=== PATIENT | female | born 1990 ===

== ENCOUNTER → 2024-07-03 11:14 | Outpatient (BNVA) | payer MEDICAID, SELFPAY | PROVIDERS: PCP Obstetrics & Gynecology; Visit Provider Nurse Practitioner Women's Health | DX: Z34.90 Encounter for supervision of normal pregnancy, unspecified, unspecified trimester (principal); N91.2 Amenorrhea, unspecified | CPT/HCPCS: 80307; 81000; 81025; 84439; 84443; 84481; 85025; 86592; 86762; 86803; 86850; 86900; 87086; 87340; 87806 ==

== ENCOUNTER → 2024-07-23 07:56 | Outpatient (BNVA) | payer MEDICAID, SELFPAY | PROVIDERS: PCP Obstetrics & Gynecology; Visit Provider Nurse Practitioner Women's Health | DX: Z34.90 Encounter for supervision of normal pregnancy, unspecified, unspecified trimester (principal) | CPT/HCPCS: 81000; 87491; 87591; 87624 ==

== ENCOUNTER → 2024-08-28 09:15 | Outpatient (BNVA) | payer OTHER, MEDICAID, SELFPAY | PROVIDERS: PCP Obstetrics & Gynecology; Visit Provider Obstetrics & Gynecology | DX: O26.892 Other specified pregnancy related conditions, second trimester (principal); Z3A.20 20 weeks gestation of pregnancy | CPT/HCPCS: 76805 ==

== ENCOUNTER → 2024-10-23 13:39 | Outpatient (BNVA) | payer OTHER, MEDICAID, SELFPAY | PROVIDERS: Visit Provider Obstetrics & Gynecology | DX: Z34.82 Encounter for supervision of other normal pregnancy, second trimester (principal) | CPT/HCPCS: 82950; 84315 ==

== ENCOUNTER → 2024-11-19 09:10 | Outpatient (BNVA) | payer MEDICAID, SELFPAY | PROVIDERS: Visit Provider Nurse Practitioner Women's Health | DX: Z34.82 Encounter for supervision of other normal pregnancy, second trimester (principal) | CPT/HCPCS: 81000 ==

== ENCOUNTER → 2024-12-03 12:21 | Outpatient (BNVA) | payer MEDICAID, SELFPAY | PROVIDERS: Visit Provider Nurse Practitioner Women's Health | DX: O26.893 Other specified pregnancy related conditions, third trimester (principal); Z3A.34 34 weeks gestation of pregnancy | CPT/HCPCS: 76816; 84315; 85025; 87086 ==

== ENCOUNTER → 2024-12-17 15:27 | Outpatient (BNVA) | payer MEDICAID, SELFPAY | PROVIDERS: Visit Provider Obstetrics & Gynecology | DX: Z34.82 Encounter for supervision of other normal pregnancy, second trimester (principal) | CPT/HCPCS: 84315; 87081 ==

== ENCOUNTER → 2025-01-01 10:04 | Outpatient (BNVA) | payer MEDICAID, SELFPAY | PROVIDERS: Visit Provider Obstetrics & Gynecology | DX: Z34.83 Encounter for supervision of other normal pregnancy, third trimester (principal) | CPT/HCPCS: 84315 ==

== ENCOUNTER → 2025-01-06 08:03 | Outpatient (BNVA) | payer MEDICAID, SELFPAY | PROVIDERS: Visit Provider Obstetrics & Gynecology | DX: Z34.90 Encounter for supervision of normal pregnancy, unspecified, unspecified trimester (principal) | CPT/HCPCS: 84315 ==

== ENCOUNTER 2025-01-09 20:00 | Inpatient (IN) | payer OTHER, MEDICAID, SELFPAY ==
[2025-01-09] VITALS (13 sets, daily range): BP systolic 103–144; BP diastolic 54–91; PULSE 63–93; RESP 18; BMI 27.4
[2025-01-09 19:33] LABS: Basophils % 0.2 %; Eosinophils # 0.1 10^3/uL (0.0-0.8); Eosinophils % 0.5 %; Hematocrit 36.1 % (36-47); Lymphocytes # 1.5 10^3/uL (0.8-4.8); Lymphocytes % 11.8 %; Mean Corpuscular HGB Conc 33.8 g/dL (30-55); Mean Corpuscular Hemoglobin 30.2 pg (27-33); Mean Corpuscular Volume 89.4 fl (85-98); Mean Platelet Volume 10.1 fL (7.4-10.4); Monocytes # 0.6 10^3/uL (0.2-0.9); Monocytes % 4.6 %; Neutrophils # 10.68 10^3/uL (1.8-7.7); Neutrophils % 82.4 %; Nucleated Red Blood Cells % 0 %; Platelet Count 338 10^3/cmm (157-399); Red Blood Count 4.04 10^6/uL (3.85-5.65); Red Cell Distribution Width 13.2 % (12.1-15.1); White Blood Count 12.97 10^3/uL (3.29-11.43)
[2025-01-09] MEDS: dextrose 5%-lactated ringers 1,000 ML 125 ML IV (20:00)
[2025-01-09] MEDS: lactated ringers 1,000 ML 999 ML IV (20:09)
--- NOTE | 2025-01-09 20:20 | PM.DELIVERY ---
Delivery Note: Date of delivery: January 09, 2025 Pre-delivery diagnoses: 40 weeks gestation active labor Post-delivery diagnoses: 40 weeks gestation active labor vaginal delivery Procedure: vaginal delivery Op report anesthesia: None Delivering Physician: Bharat Hanson MD Estimated blood loss (mL): 300 Findings: , vigorous infant cord gases and blood obtained normal placenta and cord no episiotomy / lacerations EBL: 300 cc no complications Pre-Delivery Course: normal labor course fetus reassuring throughout Delivery: vaginal Post-Delivery Status: good History History History 3 Term 2 0 Miscarriages/Ectopic 0 Living Children 2 A&P Assessment and plan (1) Vaginal delivery: PDMP PDMP Reviewed: Not Reviewed Coding Level of Care Code Acute Code for Chg Fwd Diagnoses Vaginal delivery O80 Time Spent (min) 60
[2025-01-09] MEDS: oxytocin 30 UNIT/500 ML BAG 600 UNIT IV (20:23)
--- NOTE | 2025-01-09 21:50 | P.HP_ITS ---
Providers/Chief Complaint 2 Admitting Physician: Bharat Hanson MD Primary DELIVERY DRIVER ASSISTANT: Bharat Hanson MD Chief Complaint: CTX HPI DELIVERY DRIVER ASSISTANT History of Present Illness patient admitted on January 09, 2025 at 1915 Adri Weems is a 34 year old female 34 y.o. EDC January 11, 2025 At 39 w 5 d No complications Presented to L&D c/o painful uterine contractions No bleeding / fluid leakage + active movements h/o x two, uncomplicated Present Details : 3 Para: 2 Labs Rubella: Immune RPR: Negative GBS: Negative Medications/Allergies Home Medications ?Medication ?Instructions ?Recorded ?Confirmed ?Last Taken ?Type No Known Home Medications 01/10/2512/28 Unknown History Allergies Allergy/AdvReac Type Severity Reaction Status Date / Time No Known Allergies Allergy Verified 01/09/25 21:10 PFSH DELIVERY DRIVER ASSISTANT 2 PFSH: Medical History (Updated 01/11/25 @ 00:00 by ANNALISE Lyons) Vaginal delivery Family History Grandmother Diabetes Hypertension Father Stroke Denies family history of Colon cancer Ovarian cancer Prostate cancer Heart disease Breast cancer Uterine cancer Thyroid disease Social History Smoking and tobacco/nicotine status: never used tobacco/nicotine History History History 2 3 Term 2 0 Miscarriages/Ectopic 0 Living Children 2 Care TRINI Calculator 2 Estimated Delivery Date Method Current WG Current Estimate 01/11/25 LMP (Certain) 44w 1d Specific Issues/Plans * SUPERVISION OF * FUNDAL HEIGHT HIGH FOR DATES: Measuring 3 cm ahead at 34 weeks gestation, U/s showed weight in 47th percentile, SHAUN 16 cm Vitals/I&O/Wt Last Vital Signs Temp 97.9 F 01/10/25 21:35 Pulse 96 01/10/25 21:35 Resp 16 01/10/25 21:35 BP 124/91 01/10/25 21:35 Pulse Ox 97 01/10/25 21:35 O2 Del Method Room Air 01/10/25 21:34 Physical Exam 2 Narrative: Weight 155 lbs; 5?3? VS normal General awake, alert, appropriate Lungs: clear Cor: RRR FH 37 cm, cephalic Cervix: 5-6 cm / 90 / -2 / cephalic Ext: no edema External monitor: regular UCs heart tracing good variability, + accelerations Data 01/10/25 12:00 Results Labs OB ([facility]): 2 Obstetrics US 12/03/24 Blood Type B Positive 01/09/25 Antibody Screen Negative 01/09/25 Hct 35.6 % (36-47) L 01/10/25 Hgb 11.90 g/dL (11.27-16.99) 01/10/25 Rho(D) Type Rh positive 01/09/25 Plt Count 280 10^3/cmm (157-399) 01/10/25 Hep Bs Antigen Non-reactive (Nonreactive) 07/03/24 Hepatitis C Antibody Non-reactive (Nonreactive) 07/03/24 Rubella IgG Antibody 168.5 IU/mL (0.0-10.0) H 07/03/24 RPR Nonreactive (Nonreactive) 07/03/24 HIV 1&2 Ab & HIV 1 Ag Non-reactive (Non-Reactiv) 07/03/24 TSH 1.57 uIU/mL (0.27-4.20) 07/03/24 Free T4 0.91 ng/dL (0.82-1.77) 07/03/24 C.trachomatis RNA (TMA) Not detected (NOT DETECTED) N.gonorrhoeae RNA (TMA) Not detected (NOT DETECTED) T. vaginalis Amp RNA Not detected (NOT DETECTED) 07/23/24 Chlamydia/GC Comment See note 07/23/24 Glucose 1 Hr 50 gm 103 mg/dL (85-140) 10/23/24 HCG, Qual Positive (Negative) H 07/03/24 Urine Opiates Screen Negative ng/mL (Negative) 01/09/25 Ur Barbiturates Screen Negative ng/mL (Negative) 01/09/25 Ur Phencyclidine Scrn Negative ng/mL (Negative) 01/09/25 Ur Amphetamines Screen Negative ng/mL (Negative) 01/09/25 U Benzodiazepines Scrn Negative ng/mL (Negative) 01/09/25 Urine Cocaine Screen Negative ng/mL (Negative) 01/09/25 U Marijuana (THC) Screen Negative ng/mL (Negative) 01/09/25 Micro Urine Specimen 12/03/24 Pap Smear Interpret See note 07/23/24 A&P Assessment and plan (1) Supervision of normal : 39 w 5 d Active labor Admit Labor management h/o x two Rh + GBS negative Qualifiers: Normal : other normal Trimester: second trimester Qualified Code(s): Z34.82 - Encounter for supervision of other normal , second trimester PDMP PDMP Reviewed: Not Reviewed Attestations 2 Medical Necessity Statement*: patient at 39 w 5 d, with active labor Coding Level of Care Code Acute Code for Chg Fwd Diagnoses Encounter for supervision of other normal in second trimester Z34.82 Normal : other normal Trimester: second trimester Time Spent (min) 60
[2025-01-09] MEDS: benzocaine-menthol 78 gm Canister 1 SPRAY TOPICAL (23:40)
[2025-01-10] VITALS (8 sets, daily range): BP systolic 100–124; BP diastolic 58–91; PULSE 71–96; RESP 16; TEMP 36.6–36.8; O2SAT 97
[2025-01-10 00:51] LABS: Amphetamines Screen Urine Negative (Negative); Barbiturates Screen Urine Negative (Negative); Benzodiazepines Screen Urine Negative (Negative); Cocaine Screen Urine Negative (Negative); Opiate Screen Urine Negative (Negative); PCP Screen Urine Negative (Negative); THC Screen Urine Negative (Negative)
--- NOTE | 2025-01-10 09:35 | PC.NURSE ---
[facility] at bedside
[2025-01-10 12:19] LABS: Hematocrit 35.6 % (36-47); Mean Corpuscular HGB Conc 33.4 g/dL (30-55); Mean Corpuscular Hemoglobin 30.9 pg (27-33); Mean Corpuscular Volume 92.5 fl (85-98); Mean Platelet Volume 10.2 fL (7.4-10.4); Platelet Count 280 10^3/cmm (157-399); Red Blood Count 3.85 10^6/uL (3.85-5.65); Red Cell Distribution Width 13.3 % (12.1-15.1); White Blood Count 12.85 10^3/uL (3.29-11.43)
--- NOTE | 2025-01-10 17:20 | P.DS_ITS ---
Discharge Providers BOTTLE LABEL INSPECTOR Date of Admission: 01/09/25 20:00 Date of Discharge: 01/10/25 Attending Provider at Admission: Bharat Hanson MD Attending Provider at Discharge: Bharat Hanson MD Consults: none Primary BOTTLE LABEL INSPECTOR: Bharat Hanson MD Diagnoses at Discharge Discharge Diagnosis (1) Supervision of normal : Details from hospital stay: 34 y.o. at 39 w 5 d no complications presented with active labor cervix was 5-6 cm patient progressed to complete dilatation fetus was reassuring throughout delivered vaginally without any lacerations patient did well and was discharged to home on the first day Status: Acute Qualifiers: Normal : other normal Trimester: second trimester Qualified Code(s): Z34.82 - Encounter for supervision of other normal , second trimester Reason for Visit Reason for Visit: CTX Brief History: 34 y.o. at 39 w 5 d no complications presented with active labor cervix was 5-6 cm Hospital Course Hospital Course 34 y.o. at 39 w 5 d no complications presented with active labor cervix was 5-6 cm patient progressed to complete dilatation fetus was reassuring throughout delivered vaginally without any lacerations patient did well and was discharged to home on the first day Information Peripartum Data: Delivery Method: Vaginal Laceration description: None Episiotomy description: None complications: none Physical Exam Narrative: General: comfortable, awake, alert VS afebrile, normal Lungs: clear Cor: RRR Abd: soft, nontender. fundus firm Ext: no edema History History History 3 Term 2 0 Miscarriages/Ectopic 0 Living Children 2 Discharge Data Studies Completed and Pending Laboratory Results WBC 12.85 10^3/uL (3.29-11.43) H 01/10/25 12:00 RBC 3.85 10^6/uL (3.85-5.65) 01/10/25 12:00 Hgb 11.90 g/dL (11.27-16.99) 01/10/25 12:00 Hct 35.6 % (36-47) L 01/10/25 12:00 MCV 92.5 fl (85-98) 01/10/25 12:00 MCH 30.9 pg (27-33) 01/10/25 12:00 MCHC 33.4 g/dL (30-55) 01/10/25 12:00 RDW 13.3 % (12.1-15.1) 01/10/25 12:00 Plt Count 280 10^3/cmm (157-399) 01/10/25 12:00 MPV 10.2 fL (7.4-10.4) 01/10/25 12:00 Neut % (Auto) 82.4 % 01/09/25 19:19 Lymph % (Auto) 11.8 % 01/09/25 19:19 [place] % (Auto) 4.6 % 01/09/25 19:19 Eos % (Auto) 0.5 % 01/09/25 19:19 Baso % (Auto) 0.2 % 01/09/25 19:19 Neut # (Auto) 10.68 10^3/uL (1.8-7.7) H 01/09/25 19:19 Lymph # (Auto) 1.5 10^3/uL (0.8-4.8) 01/09/25 19:19 [place] # (Auto) 0.6 10^3/uL (0.2-0.9) 01/09/25 19:19 Eos # (Auto) 0.1 10^3/uL (0.0-0.8) 01/09/25 19:19 Baso # (Auto) 0.0 10^3/uL (0.0-0.1) 01/09/25 19:19 Nucleated RBC % (auto) 0 % 01/09/25 19:19 Nucleated RBCs # 0.0 /100WBC 01/09/25 19:19 Urine Opiates Screen Negative ng/mL (Negative) 01/09/25 23:45 Ur Barbiturates Screen Negative ng/mL (Negative) 01/09/25 23:45 Ur Phencyclidine Scrn Negative ng/mL (Negative) 01/09/25 23:45 Ur Amphetamines Screen Negative ng/mL (Negative) 01/09/25 23:45 U Benzodiazepines Scrn Negative ng/mL (Negative) 01/09/25 23:45 Urine Cocaine Screen Negative ng/mL (Negative) 01/09/25 23:45 U Marijuana (THC) Screen Negative ng/mL (Negative) 01/09/25 23:45 Blood Type B Positive 01/09/25 19:19 Rho(D) Type Rh positive 01/09/25 19:19 Antibody Screen Negative 01/09/25 19:19 Procedures Performed vaginal delivery Vitals Last Vital Signs Temp 97.9 F 01/10/25 21:35 Pulse 96 01/10/25 21:35 Resp 16 01/10/25 21:35 BP 124/91 01/10/25 21:35 Pulse Ox 97 01/10/25 21:35 O2 Del Method Room Air 01/10/25 21:34 Results Labs OB ([facility]): Obstetrics US 12/03/24 Blood Type B Positive 01/09/25 Antibody Screen Negative 01/09/25 Hct 35.6 % (36-47) L 01/10/25 Hgb 11.90 g/dL (11.27-16.99) 01/10/25 Rho(D) Type Rh positive 01/09/25 Plt Count 280 10^3/cmm (157-399) 01/10/25 Hep Bs Antigen Non-reactive (Nonreactive) 07/03/24 Hepatitis C Antibody Non-reactive (Nonreactive) 07/03/24 Rubella IgG Antibody 168.5 IU/mL (0.0-10.0) H 07/03/24 RPR Nonreactive (Nonreactive) 07/03/24 HIV 1&2 Ab & HIV 1 Ag Non-reactive (Non-Reactiv) 07/03/24 TSH 1.57 uIU/mL (0.27-4.20) 07/03/24 Free T4 0.91 ng/dL (0.82-1.77) 07/03/24 C.trachomatis RNA (TMA) Not detected (NOT DETECTED) N.gonorrhoeae RNA (TMA) Not detected (NOT DETECTED) T. vaginalis Amp RNA Not detected (NOT DETECTED) 07/23/24 Chlamydia/GC Comment See note 07/23/24 Glucose 1 Hr 50 gm 103 mg/dL (85-140) 10/23/24 HCG, Qual Positive (Negative) H 07/03/24 Urine Opiates Screen Negative ng/mL (Negative) 01/09/25 Ur Barbiturates Screen Negative ng/mL (Negative) 01/09/25 Ur Phencyclidine Scrn Negative ng/mL (Negative) 01/09/25 Ur Amphetamines Screen Negative ng/mL (Negative) 01/09/25 U Benzodiazepines Scrn Negative ng/mL (Negative) 01/09/25 Urine Cocaine Screen Negative ng/mL (Negative) 01/09/25 U Marijuana (THC) Screen Negative ng/mL (Negative) 01/09/25 Micro Urine Specimen 12/03/24 Pap Smear Interpret See note 07/23/24 Discharge Plan Discharge Patient Disposition: Home Condition: Stable Prescriptions: No Action No Known Home Medications Discharge Orders: Discharge Order (Routine); Ordered 01/10/25 Ordered By: Bharat Hanson Referrals: Susana Bergeron NP [Nurse Practitioner] - 02/19/25 1:30 pm Discharge Diet: Usual diet Discharge Activity: Increase activity as tolerated Patient Instructions: Depression (DC), Opioid Safety (DC), Preeclampsia and Eclampsia After Delivery (GEN), Hemorrhage (DC), OB Discharge Report, OB Food/Drug Interaction Guide, Opioid Safety, OB Home Care, OB Vaginal Deliveries - [facility], Abnormal Bleeding Discharge Attestations BOTTLE LABEL INSPECTOR Time Spent in Discharge Care*: less than 30 min Coding Level of Care Code Acute Code for Chg Fwd Diagnoses Encounter for supervision of other normal in second trimester Z34.82 Normal : other normal Trimester: second trimester
--- NOTE | 2025-01-10 18:51 | PC.NURSE ---
THIS ELIGIBILITY SUPERVISOR TALKED WITH PATIENT AND SHE STATED THAT HER MOTHER SAID THAT [facility] DID HOME VISIT AND IT WAS ALL GOOD, THIS ELIGIBILITY SUPERVISOR HAS NOT HEARD FROM ANYONE FROM [facility].
== END 2025-01-10 21:50 | disposition home or self-care (01) | DRG 807 ==
LOC: OPOB 20:02 → OBGYN 20:02
PROVIDERS: Admitting Provider Obstetrics & Gynecology; Visit Provider Obstetrics & Gynecology
DX: O80 Encounter for full-term uncomplicated delivery (principal); Z37.0 Single live birth; Z3A.39 39 weeks gestation of pregnancy
CPT/HCPCS: 36415; 59025; 59409; 80306; 85025; 85027; 86850; 86900; 99211; J2590; J7120; J7121